=== PATIENT | male | born 1985 | race American Indian/Alaskan Native ===

== ENCOUNTER 2017-08-08 23:14 | Emergency (ER) | payer SELFPAY ==
[~2017-08-08] VITALS: Ht 188 cm; Wt 93.0 kg
[~2017-08-08 23:14] MED LIST: Amoxicillin500 MG PO; Augmentin 875-1 EACH PO; Bactrim Ds Tab1 EACH PO; CEPH500 PO; Cleocin HCl150 MG PO; HYDACE5 PO; HYOS.125 SL; IBUP800 PO; Keflex500 MG PO; NAPR500 PO; Norco 5-325 Ta1 EACH PO; SULTRIDS PO; TRAM50 PO; Zithromax250 MG PO
[2017-08-09] MEDS ORDERED: ERYT1OIN BOTHEYES (00:05)
== END 2017-08-09 00:21 | disposition home or self-care (01) ==
LOC: ER 23:14
DX: H10.023 Other mucopurulent conjunctivitis, bilateral (principal); F17.200 Nicotine dependence, unspecified, uncomplicated; Z88.5 Allergy status to narcotic agent
CPT/HCPCS: 99283

== ENCOUNTER 2018-09-23 13:00 | Emergency (ER) | payer SELFPAY ==
[~2018-09-23 13:00] MED LIST changes: +ERYT1OIN BOTHEYES
== END 2018-09-23 15:10 | disposition left against medical advice (07) ==
LOC: ER 13:00
DX: Z53.21 Procedure and treatment not carried out due to patient leaving prior to being seen by health care provider (principal)

== ENCOUNTER 2018-11-28 21:07 | Emergency (ER) | payer OTHER ==
[~2018-11-28] VITALS: Ht 188 cm; Wt 95.2 kg
[2018-11-28] MEDS ORDERED: Augmentin 875-1 EACH PO (23:15)
== END 2018-11-28 23:25 | disposition home or self-care (01) ==
LOC: ER 21:07
DX: K04.7 Periapical abscess without sinus (principal); Z88.5 Allergy status to narcotic agent; F17.210 Nicotine dependence, cigarettes, uncomplicated
CPT/HCPCS: 99282

== ENCOUNTER 2019-07-03 15:26 | Emergency (ER) | payer OTHER ==
[~2019-07-03] VITALS: Ht 188 cm; Wt 102.1 kg
[2019-07-03 16:27] LABS: Influenza A Positive (NEGATIVE); Influenza B Negative (NEGATIVE)
[2019-07-03] MEDS ORDERED: METOPROLOL (17:04)
[2019-07-03] MEDS ORDERED: MED FOR NIGHTMARES (17:04)
[2019-07-03] MEDS ORDERED: Permethrin60 GM TOP (17:08)
[2019-07-03] MEDS ORDERED: Triamcinolone A15 G3 TOP (17:08)
[2019-07-03] MEDS ORDERED: Tamiflu75 MG PO (17:08)
== END 2019-07-03 17:42 | disposition home or self-care (01) ==
LOC: ER 15:26
PROVIDERS: Physician Assistant
DX: J10.1 Influenza due to other identified influenza virus with other respiratory manifestations (principal); I10 Essential (primary) hypertension; F17.210 Nicotine dependence, cigarettes, uncomplicated; Z79.899 Other long term (current) drug therapy; Z88.5 Allergy status to narcotic agent
CPT/HCPCS: 71046; 87804; 99283-25; A9270-GY

== ENCOUNTER 2019-07-23 21:46 | Emergency (ER) | payer OTHER ==
[~2019-07-23] VITALS: Ht 188 cm; Wt 99.8 kg
[~2019-07-23 21:46] MED LIST changes: +MED FOR NIGHTMARES; +METOPROLOL; +Permethrin60 GM TOP; +Tamiflu75 MG PO; +Triamcinolone A15 G3 TOP
[2019-07-23 22:45] LABS: Influenza A Negative (NEGATIVE); Influenza B Positive (NEGATIVE)
[2019-07-23] MEDS ORDERED: IBUP800 PO (23:21)
[2019-07-23] MEDS ORDERED: BENADRYL25 MG PO (23:28)
== END 2019-07-23 23:36 | disposition home or self-care (01) ==
LOC: ER 21:46
PROVIDERS: Physician Assistant
DX: J10.1 Influenza due to other identified influenza virus with other respiratory manifestations (principal); R21 Rash and other nonspecific skin eruption; F17.210 Nicotine dependence, cigarettes, uncomplicated; Z88.5 Allergy status to narcotic agent
CPT/HCPCS: 87804; 99283; Q0163

== ENCOUNTER → 2023-03-11 | Outpatient (CLI) | payer OTHER ==
[~2023-03-11] MED LIST changes: +Amoxicillin875 MG PO; +BENADRYL25 MG PO; +PAROEX473 ML MM
== END ==
LOC: LAB 17:38 → LAB SHORT 17:38
DX: J02.9 Acute pharyngitis, unspecified (principal)
CPT/HCPCS: 87081

== ENCOUNTER 2024-02-07 21:21 | Emergency (ER) | payer OTHER ==
[~2024-02-07] VITALS: Ht 188 cm; Wt 90.7 kg
[2024-02-07] MEDS ORDERED: Lactated Ringer's 1,000 ML IV ONE ×3 (21:40→23:40)
[2024-02-07 21:52] LABS: BASOPHILS ABSOLUTE AUTO 0.04 K/mm3 (0.00-0.23); BASOPHILS PERCENT AUTO 1 % (0-2); EOSINOPHILS PERCENT AUTO 2 % (0-6); Hematocrit 38.1 % (37.0-53.0); Hemoglobin 13.6 g/dL (13.5-17.5); IMMATURE GRAN ABSOLUTE AUTO 0.01 K/mm3 (0.00-0.10); IMMATURE GRAN PERCENT AUTO 0 % (0-1); LYMPHOCYTES PERCENT AUTO 43 % (21-46); MONOCYTES ABSOLUTE AUTO 0.51 K/mm3 (0.16-1.47); MONOCYTES PERCENT AUTO 9 % (4-13); Mean Corpuscular HGB 31.3 pg (26.0-34.0); Mean Corpuscular HGB Conc 35.7 g/dL (31.5-36.5); Mean Corpuscular Volume 88 fL (80-100); Mean Platelet Volume 10.3 fL (9.1-12.4); NEUTROPHILS ABSOLUTE AUTO 2.64 K/mm3 (1.96-9.15); NEUTROPHILS PERCENT AUTO 46 % (41-73); Platelet Count 254 K/mm3 (150-400); RDW Coefficient Variation 11.9 % (11.7-14.2); Red Blood Cell Count 4.35 M/mm3 (4.30-5.90)
[2024-02-07 22:11] LABS: Albumin, Blood 3.8 g/dL (3.4-5.0); Albumin/Globulin Ratio 1.2 (0.8-1.8); Bilirubin, Total 0.7 mg/dL (0.1-1.0); Bun/Creatinine Ratio 18.4 (12.0-20.0); Calcium, Blood 8.9 mg/dL (8.5-10.1); Creatinine, Blood 0.76 mg/dL (0.60-1.20); Globulin, Blood 3.1 g/dL (2.2-4.0); Magnesium, Blood 1.9 mg/dL (1.6-2.4); Total Protein, Blood 6.9 g/dL (6.4-8.2)
[2024-02-07] MEDS ORDERED: Insulin Regular 100 Unit/ML 1ML Dose SC ONE ×2 (22:45→23:40)
[2024-02-08 00:50] VITALS: BP 125/81
== END 2024-02-08 00:52 | disposition home or self-care (01) ==
LOC: ER 21:21
PROVIDERS: Physician Assistant
DX: E11.65 Type 2 diabetes mellitus with hyperglycemia (principal); I10 Essential (primary) hypertension; F17.210 Nicotine dependence, cigarettes, uncomplicated; Z79.899 Other long term (current) drug therapy; Z88.5 Allergy status to narcotic agent
CPT/HCPCS: 80053; 82947; 83735; 85025; 93005; 93010; 96360; 96361; 99283-25; J1815; J7120

== ENCOUNTER → 2024-09-26 | Outpatient (CLI) | payer OTHER ==
[~2024-09-26] MED LIST changes: +BASAGLAR K100 UNIT/1 SC; +HUMALOG TE100 UNIT/1 SC; +K-TAB ER20 ME1 PO; +METF500 PO
[2024-09-26 17:37] LABS: Hemoglobin 15.1 g/dL (13.5-17.5); Mean Corpuscular HGB 30.6 pg (26.0-34.0); Mean Corpuscular HGB Conc 34.3 g/dL (31.5-36.5); Mean Corpuscular Volume 89 fL (80-100); Platelet Count 258 K/mm3 (150-400); RDW Coefficient Variation 11.5 % (11.7-14.2); RDW Standard Deviation 37.1 fL (35.1-46.3); Red Blood Cell Count 4.94 M/mm3 (4.30-5.90); White Blood Cell Count 7.35 K/mm3 (4.00-11.30)
[2024-09-26 19:35] LABS: Alanine Aminotransfer (ALT/SGP 32 U/L (12-78); Albumin, Blood 3.7 g/dL (3.4-5.0); Alk Phos 69 U/L (50-136); Anion Gap 9 mmol/L (3-11); Aspartate Aminotrans (AST/SGOT 16 U/L (12-37); Bilirubin, Total 0.7 mg/dL (0.1-1.0); Blood Urea Nitrogen 13 mg/dL (8-24); CHOL/HDL RATIO 2.5; CO2, Blood 28 mmol/L (21-32); Calcium, Blood 8.7 mg/dL (8.5-10.1); Chloride, Blood 101 mmol/L (98-108); Cholesterol 167 mg/dL (50-200); Globulin, Blood 3.8 g/dL (2.2-4.0); Glucose, Blood 337 mg/dL (70-99); HDL Cholesterol 67 mg/dL (>39); LDL/HDL RATIO 1.2; Low Density Lipoprotein Chol 83 mg/dL (0-110); Potassium, Blood 4.5 mmol/L (3.5-5.5); Sodium, Blood 133 mmol/L (136-145); Total Protein, Blood 7.5 g/dL (6.4-8.2); Triglycerides 84 mg/dL (30-160); Very Low Density Lipoprot Chol 16 mg/dL (6-32)
[2024-09-26 19:37] LABS: Bun/Creatinine Ratio 16.4 (12.0-20.0); Glomerular Filtration Rate 115 (60-)
[2024-09-26 20:29] LABS: Protein, Urine Random 7.6 mg/dL (0.0-11.9)
[2024-09-26 20:34] LABS: Protein/Creat Ratio, Ur Random 0.1
== END | disposition home or self-care (01) ==
LOC: LAB SHORT 16:09 → LAB 16:09
DX: E13.9 Other specified diabetes mellitus without complications (principal)
CPT/HCPCS: 80053; 80061; 82570; 83036; 84156; 85027